=== PATIENT | female | born 1955 | race American Indian/Alaskan Native ===

== ENCOUNTER 2019-07-18 11:01 | Outpatient (CLI) | payer OTHER ==
--- NOTE | 2019-07-18 15:27 | Mammography Report ---
DIGITAL SCREENING MAMMOGRAM WITH CAD, 07/18/2019 INDICATION: Routine screening mammography. TECHNIQUE: Digital bilateral 2D mammography was obtained in the craniocaudal and mediolateral obliq ue projections. COMPARISON: 07/16/2018, 06/15/2016, 05/18/2015, 04/16/2014. FINDINGS: Breast Density: There are scattered areas of fibroglandular density. There is no evidence of dominant mass, suspicious calcifications or architectural distortion in eithe r breast. Stable benign-appearing calcifications within the posterior inferior right breast and left inferior anterior breast. CAD was utilized. IMPRESSION: No evidence of malignancy. Recommend routine screening mammogram in one year. BI-RADS Category 2: Benign. No mammographic evidence of malignancy. Recommend routine screening ma mmography in one year. A "normal" or negative report should not discourage follow up or biopsy of a clinically significant f inding. A written summary of these findings will be mailed to the patient. The patient will be entered into a mammography reporting system which will generate a reminder letter for the patient's next appointmen t at the appropriate interval. The [employer] recommends yearly mammograms starting at age 40 and continuing as l yunior as a woman is in good health. Breast MRI is recommended for women with an approximate 20-25% or greater lifetime risk of breast cancer, including women with a strong family history of breast or ova bernabe cancer or who have been treated for Hodgkin's disease. Signer Name: Prakash Espinoza MD Signed: 07/18/2019 3:23 PM Workstation Name: [id number]
== END 2019-07-18 11:02 | disposition home or self-care (01) ==
LOC: MAMMO 11:01
PROVIDERS: ATTEND Obstetrics & Gynecology
DX: Z12.31 Encounter for screening mammogram for malignant neoplasm of breast (principal)
CPT/HCPCS: 77067